=== PATIENT | female | born 1990 | race Caucasian/White ===

== ENCOUNTER 2016-05-31 12:00 | Observation (INO) | payer OTHER ==
[~2016-05-31] VITALS: Ht 175 cm; Wt 87.1 kg
[~2016-05-31 12:00] MED LIST: IBUP-2070 PO; PREN1TAB52 PO
[2016-05-31] MEDS ORDERED: DEXTROSE 5%-0.9% SODIUM CHL 1,000 ML IV SCH (13:15)
[2016-05-31] MEDS ORDERED: DEXTROSE 5%-0.45% SODIUM CHL 1,000 ML IV ONE (13:16)
== END 2016-05-31 16:30 | disposition home or self-care (01) ==
LOC: 4S 12:00
PROVIDERS: ADMIT Obstetrics & Gynecology; ATTEND Obstetrics & Gynecology
DX: Z34.83 Encounter for supervision of other normal pregnancy, third trimester (principal); Z3A.35 35 weeks gestation of pregnancy
CPT/HCPCS: 59025; 76805; 96360; 96361; G0378; J7042; X7700

== ENCOUNTER 2016-06-24 19:34 | Inpatient (IN) | payer OTHER ==
[~2016-06-24] VITALS: Ht 177.8 cm; Wt 89.8 kg
[2016-06-24 20:16] VITALS: BP 110/76
[2016-06-24] MEDS ORDERED: OXYTOCIN 30 UNITS/LACT RINGERS 500 ML IV ONE (20:41)
[2016-06-24] MEDS ORDERED: OXYTOCIN 30 UNITS/LACT RINGERS 500 ML IV PRN ×2 (20:41→23:44)
[2016-06-24] MEDS ORDERED: RINGERS SOLUTION,LACTATED 1,000 ML IV SCH (20:41)
[2016-06-24] MEDS ORDERED: RINGERS SOLUTION,LACTATED 1,000 ML IV PRN (20:41)
[2016-06-24] MEDS ORDERED: FentaNYL CITRATE-PF 100 MCG/2 ML VIAL IVP PRN (20:45)
[2016-06-24] MEDS ORDERED: METOCLOPRAMIDE HCL 5 MG/ML 2 ML VIAL IVP PRN (20:45)
[2016-06-24] MEDS ORDERED: CITRIC ACID/SODIUM CITRATE 30 ML SOLUTION UDCUP PO PRN (20:45)
[2016-06-24 21:24] LABS: BASOPHILS # (AUTO) 0.03 K/uL (0.00-0.20); BASOPHILS % (AUTO) 0.2 % (0.0-2.0); EOSINOPHILS # (AUTO) 0.07 K/uL (0.00-0.70); EOSINOPHILS % (AUTO) 0.52 % (1.0-6.0); HEMATOCRIT 33.8 % (36-46); HEMOGLOBIN 11.6 g/dL (12.0-16.0); LYMPHOCYTES # (AUTO) 1.8 K/uL (1.0-4.8); MEAN CORPUSCULAR HEMOGLOBIN 32.1 pg (26.0-34.0); MEAN CORPUSCULAR HGB CONC 34.2 G/dL (31.0-37.0); MEAN CORPUSCULAR VOLUME 94 fL (80-100); MONOCYTES # (AUTO) 1.1 K/uL (0.1-1.0); MONOCYTES % (AUTO) 8.5 % (2.0-9.0); NEUTROPHILS # (AUTO) 10.1 K/uL (1.8-7.7); NEUTROPHILS % (AUTO) 76.8 % (40.0-70.0); RED BLOOD CELL COUNT(AUTO) 3.61 MIL/uL (4.00-5.20); RED CELL DISTRIBUTION WIDTH 13.3 % (11.5-14.5); WHITE BLOOD COUNT (AUTO) 13.2 K/uL (4.5-11.0)
[2016-06-24] MEDS ORDERED: FentaNYL/BUPIV 0.125%/NS/PF 200 ML ED PRN (23:41)
[2016-06-24] MEDS ORDERED: DiphenhydrAMINE HCL 50 MG/ML VIAL IVP PRN (23:45)
[2016-06-24] MEDS ORDERED: ONDANSETRON HCL 4 MG/2 ML VIAL IVP PRN (23:45)
[2016-06-24] MEDS ORDERED: NALBUPHINE HCL 10 MG/ML VIAL IVP PRN (23:45)
[2016-06-25] MEDS ORDERED: FentaNYL/BUPIV 0.125%/NS/PF 200 ML ED ONE (00:03)
[2016-06-25] MEDS ORDERED: BUPIVACAINE HCL/PF 0.25% 10 ML VIAL ONE (00:03)
[2016-06-25] MEDS ORDERED: RINGERS SOLUTION,LACTATED 1,000 ML IV ONE (02:26)
[2016-06-25] MEDS ORDERED: GLYCERIN/WITCH HAZEL LEAF 40 PADS JAR TP PRN (02:30)
[2016-06-25] MEDS ORDERED: BENZOCAINE 20%/MENTHOL 56 GM SPRAY CANISTER TP PRN (02:30)
[2016-06-25] MEDS ORDERED: MEASLES/MUMPS/RUBELLA VACCINE, LIVE 0.5 ML/VIAL SQ ONE (02:30)
[2016-06-25] MEDS ORDERED: IBUPROFEN 600 MG TABLET PO PRN (02:30)
[2016-06-25] MEDS ORDERED: OxyCODONE HCL/ACETAMINOPHEN 5-325 MG TABLET PO PRN ×2 (02:30)
[2016-06-25] MEDS ORDERED: LANOLIN 7 GM OINTMENT TP PRN (02:30)
[2016-06-25] MEDS ORDERED: OXYGEN THERAPY IH SCH (08:00)
[2016-06-25] MEDS ORDERED: MAGNESIUM HYDROXIDE SUSPENSION 30 ML UDCUP PO SCH (09:00)
[2016-06-25] MEDS ORDERED: IBUP-2070 PO (12:46)
== END 2016-06-25 20:55 | disposition home or self-care (01) | DRG 775 ==
LOC: OBSVTOIN 19:34 → 4S 19:34
PROVIDERS: ADMIT Obstetrics & Gynecology; ATTEND Obstetrics & Gynecology
PROC: 10E0XZZ Delivery of Products of Conception, External Approach (ICD-10-PCS; principal; 2016-06-25)
PROC: 0KQM0ZZ Repair Perineum Muscle, Open Approach (ICD-10-PCS; 2016-06-25)
PROC: 3E0S3CZ (ICD-10-PCS; 2016-06-25)
PROC: 00HU33Z Insertion of Infusion Device into Spinal Canal, Percutaneous Approach (ICD-10-PCS; 2016-06-25)
DX: O69.81X0 Labor and delivery complicated by cord around neck, without compression, not applicable or unspecified (principal); O70.1 Second degree perineal laceration during delivery; O77.0 Labor and delivery complicated by meconium in amniotic fluid; Z3A.39 39 weeks gestation of pregnancy; Z37.0 Single live birth
CPT/HCPCS: 86850; 86900; 86901; J2590; J3490; J7120